=== PATIENT | male | born 1985 | race Caucasian/White ===

== ENCOUNTER 2017-02-19 21:51 | Emergency (ER) | payer MEDICARE | END 2017-02-20 01:21 | disposition home or self-care (01) | LOC: ER1 21:51 | DX: R11.2 Nausea with vomiting, unspecified (principal); R19.7 Diarrhea, unspecified; R10.9 Unspecified abdominal pain; F17.200 Nicotine dependence, unspecified, uncomplicated | CPT/HCPCS: 99283 ==